=== PATIENT | female | born 1995 | race Caucasian/White ===

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

== ENCOUNTER 2017-01-28 14:42 | Emergency (ER) | payer OTHER | END 2017-01-28 14:55 | disposition home or self-care (01) | LOC: ER 14:42 | DX: L02.415 Cutaneous abscess of right lower limb (principal); F17.210 Nicotine dependence, cigarettes, uncomplicated; Z86.14 Personal history of Methicillin resistant Staphylococcus aureus infection; Z91.048 Other nonmedicinal substance allergy status ==

== ENCOUNTER 2017-02-10 18:39 | Emergency (ER) | payer OTHER | END 2017-02-10 19:45 | disposition home or self-care (01) | LOC: ER 18:39 | DX: T63.443A Toxic effect of venom of bees, assault, initial encounter (principal); F17.200 Nicotine dependence, unspecified, uncomplicated; Z79.899 Other long term (current) drug therapy; Z88.8 Allergy status to other drugs, medicaments and biological substances ==